=== PATIENT | male | born 1940 | race Caucasian/White ===

== ENCOUNTER 2018-08-26 14:36 | Observation (INO) | payer MEDICARE, OTHER ==
[2018-08-26 15:39] LABS: Basophils % (A) 1 %; Eosinophils # (A) 0.1 k/uL (0-0.7); Eosinophils % (A) 2 %; Lymphocytes # (A) 0.8 k/uL (1.0-4.8); Lymphocytes % (A) 13 %; MCH 29.5 pg (25.0-35.0); MCHC 32.6 g/dL (31.0-37.0); MCV 90.4 fL (80.0-100.0); Mean Platelet Volume 7.3; Monocytes # (A) 0.3 k/uL (0-1.0); Monocytes % (A) 5 %; Neutrophils # (A) 4.8 k/uL (1.3-7.7); Neutrophils % (A) 77 %; Platelet Count 211 k/uL (150-450); RBC 5.41 m/uL (4.30-5.90); RDW 13.2 % (11.5-15.5); WBC 6.2 k/uL (3.8-10.6)
[2018-08-26] MEDS ORDERED: MECLIZINE 12.5 MG TAB PO STA (15:40)
[2018-08-26] MEDS ORDERED: SODIUM CHLORIDE 0.9% 500 ML 500 ML IV ONE (15:40)
--- NOTE | 2018-08-26 15:44 | ED ---
General Adult HPI - General Chief complaint: Dizziness Stated complaint: Dizzy Time Seen by Provider: 08/26/18 15:29 Source: patient, RN notes reviewed, old records reviewed Mode of arrival: ambulatory Limitations: no limitations - History of Present Illness Initial comments: 78-year-old male presents with chief complaint of dizziness and lightheadedness. Patient's symptoms have been present throughout the day today. States he woke with these symptoms. He is presenting approximately 3 PM. Denies any focal numbness or weakness. He had one episode of vomiting. He had symptoms throughout the past 10 hours. Symptoms are worsened by position changes. No recent URI symptoms. No fever or chills. No significant headache. No focal numbness or weakness. No chest pain or dyspnea. No abdominal pain. He had several episodes of vomiting approximately 2 days ago and he has been adjusting his diet because he was recently diagnosed with diabetes. - Related Data Home Medications Medication Instructions Recorded Confirmed Aspirin 325 mg PO HS 08/26/18 08/26/18 Atorvastatin [Lipitor] 80 mg PO HS 08/26/18 08/26/18 Latanoprost [Xalatan 0.005%] 1 drop BOTH EYES HS 08/26/18 08/26/18 amLODIPine [Norvasc] 10 mg PO HS 08/26/18 08/26/18 Allergies Allergy/AdvReac Type Severity Reaction Status Date / Time No Known Allergies Allergy Verified 08/26/18 16:08 Review of Systems ROS Statement: Those systems with pertinent positive or pertinent negative responses have been documented in the HPI. ROS Other: All systems not noted in ROS Statement are negative. Past Medical History Past Medical History: Coronary Artery Disease (CAD), Hyperlipidemia, Hypertension History of Any Multi-Drug Resistant Organisms: None Reported Past Surgical History: Cholecystectomy, Heart Catheterization With Stent Additional Past Surgical History / Comment(s): GLAUCOMA Past Psychological History: No Psychological Hx Reported Smoking Status: Former smoker Past Alcohol Use History: Occasional Past Drug Use History: None Reported General Exam Limitations: no limitations General appearance: alert, in no apparent distress Head exam: Present: atraumatic, normocephalic Eye exam: Present: normal appearance, PERRL, EOMI. Absent: nystagmus ENT exam: Present: mucous membranes dry Neck exam: Present: normal inspection. Absent: tenderness, meningismus Respiratory exam: Present: normal lung sounds bilaterally. Absent: respiratory distress, wheezes Cardiovascular Exam: Present: normal rhythm, bradycardia GI/Abdominal exam: Present: soft. Absent: distended, tenderness, guarding Extremities exam: Present: normal inspection, normal capillary refill. Absent: pedal edema, calf tenderness Neurological exam: Present: alert, oriented X3, CN II-XII intact, normal gait, other (No ataxia). Absent: motor sensory deficit Psychiatric exam: Present: normal affect, normal mood Skin exam: Present: warm, dry, intact. Absent: cyanosis, diaphoretic, erythema Course Vital Signs 08/26/18 14:54 Temperature 98 F Pulse Rate 48 L Respiratory 16 Rate Blood Pressure 151/75 O2 Sat by Pulse 96 Oximetry EKG Findings - EKG Comments: EKG Findings:: EKG: Sinus bradycardia, low voltage QRS, rate of 48, MD interval 162, QRS duration 84, QTC 391. No ST segment elevation Medical Decision Making - Medical Decision Making 78-year-old male presenting for evaluation of lightheadedness, vertigo. Patient found to be bradycardic, no history of bradycardia this is sinus bradycardia with stable blood pressure. No beta blockers or calcium channel blockers. Symptoms are consistent with vertigo, somewhat improved with IV hydration and meclizine. He has normal CBC, normal CMP. He has a nonfocal neurologic exam, negative head CT, negative chest x-ray. No old records for comparison, no history of bradycardia, will be kept in observation for telemetry, echo will be obtained. Cardiology placed on consult. - Lab Data Result diagrams: 08/26/18 15:15 08/26/18 15:15 Lab Results 08/26/18 08/26/18 08/26/18 Range/Units 15:15 15:15 15:15 WBC 6.2 (3.8-10.6) k/uL RBC 5.41 (4.30-5.90) m/uL Hgb 16.0 (13.0-17.5) gm/dL Hct 49.0 (39.0-53.0) % MCV 90.4 (80.0-100.0) fL MCH 29.5 (25.0-35.0) pg MCHC 32.6 (31.0-37.0) g/dL RDW 13.2 (11.5-15.5) % Plt Count 211 (150-450) k/uL Neutrophils % 77 % Lymphocytes % 13 % Monocytes % 5 % Eosinophils % 2 % Basophils % 1 % Neutrophils # 4.8 (1.3-7.7) k/uL Lymphocytes # 0.8 L (1.0-4.8) k/uL Monocytes # 0.3 (0-1.0) k/uL Eosinophils # 0.1 (0-0.7) k/uL Basophils # 0.0 (0-0.2) k/uL Sodium 142 (137-145) mmol/L Potassium 4.5 (3.5-5.1) mmol/L Chloride 108 H (98-107) mmol/L Carbon Dioxide 23 (22-30) mmol/L Anion Gap 11 mmol/L BUN 17 (9-20) mg/dL Creatinine 0.85 (0.66-1.25) mg/dL Est GFR (CKD-EPI)AfAm >90 (>60 ml/min/1.73 sqM) Est GFR (CKD-EPI)NonAf 82 (>60 ml/min/1.73 sqM) Glucose 106 H (74-99) mg/dL Calcium 9.6 (8.4-10.2) mg/dL Total Bilirubin 2.3 H (0.2-1.3) mg/dL AST 40 (17-59) U/L ALT 41 (21-72) U/L Alkaline Phosphatase 65 (38-126) U/L Troponin I <0.012 (0.000-0.034) ng/mL Total Protein 7.3 (6.3-8.2) g/dL Albumin 4.5 (3.5-5.0) g/dL Disposition Clinical Impression: Near syncope, Bradycardia Disposition: ADMITTED IP TO THIS [facility] Condition: Stable Is patient prescribed a controlled substance at d/c from ED?: No Referrals: Nonstaff,Physician [Primary Care Provider] - 1-2 days Decision to Admit Reason: Admit from EC Decision Date: 08/26/18 Decision Time: 18:03
[2018-08-26 15:53] LABS: ALT 41 U/L (21-72); AST 40 U/L (17-59); Albumin 4.5 g/dL (3.5-5.0); Alkaline Phosphatase 65 U/L (38-126); Anion Gap 11 mmol/L; Blood Urea Nitrogen 17 mg/dL (9-20); Calcium 9.6 mg/dL (8.4-10.2); Carbon Dioxide 23 mmol/L (22-30); Chloride 108 mmol/L (98-107); Glucose 106 mg/dL (74-99); Potassium 4.5 mmol/L (3.5-5.1); Sodium 142 mmol/L (137-145); Total Bilirubin 2.3 mg/dL (0.2-1.3); Total Protein 7.3 g/dL (6.3-8.2)
--- NOTE | 2018-08-26 17:09 | CT ---
EXAMINATION TYPE: CT brain wo con DATE OF EXAM: 08/26/2018 COMPARISON: None HISTORY: Dizziness today. CT DLP: 1131.4 mGycm Automated exposure control for dose reduction was used. FINDINGS: There is cerebral cortical atrophy. There is no mass effect nor midline shift. There is no sign of in tracranial hemorrhage. The calvarium is intact. IMPRESSION: CEREBRAL ATROPHY. NO ACUTE INTRACRANIAL ABNORMALITY.
--- NOTE | 2018-08-26 17:10 | XR ---
EXAMINATION TYPE: XR chest 2V DATE OF EXAM: 08/26/2018 COMPARISON: NONE HISTORY: Dizziness TECHNIQUE: Frontal and lateral views of the chest are obtained. FINDINGS: Heart and mediastinum are normal. Lungs are clear. Diaphragm is normal. Bony thorax is int act. IMPRESSION: Normal chest
[2018-08-26] MEDS ORDERED: MECLIZINE 25 MG TAB PO PRN (17:58)
[2018-08-26] MEDS ORDERED: NALOXONE 0.4 MG/ML 1 ML VIAL IV PRN (17:58)
[2018-08-26] MEDS ORDERED: ACETAMINOPHEN TAB 325 MG TAB PO PRN (17:58)
[2018-08-26] MEDS ORDERED: ASPIRIN 325 MG TAB PO STA (17:58)
[2018-08-26] MEDS ORDERED: SODIUM CHLORIDE 0.9% 1,000 ML IV SCH (18:00)
[2018-08-26] MEDS ORDERED: LATANOPROST 0.005% OPHTH DROPS 2.5 ML BTL BOTH EYES SCH (21:00)
[2018-08-26] MEDS ORDERED: amLODIPine 10 MG TAB PO SCH (21:00)
[2018-08-26] MEDS ORDERED: ATORVASTATIN 80 MG TAB PO SCH (21:00)
[2018-08-26] MEDS ORDERED: ASPIRIN 325 MG TAB PO SCH (21:00)
[2018-08-26] MEDS ORDERED: MECLIZINE 12.5 MG TAB PO PRN (22:40)
[2018-08-26] MEDS ORDERED: ALPRAZolam 0.25 MG TAB PO PRN (22:41)
[2018-08-26] MEDS: MECLIZINE 12.5 MG TAB PO SCH (23:24)
[2018-08-27 07:32] LABS: Appearance,Urine Clear (Clear); Bilirubin,Urine Negative (Negative); Blood,Urine Negative (Negative); Color,Urine Yellow; Glucose,Urine (UA) Negative (Negative); Ketones,Urine 2+ (Negative); Leukocyte Esterase,Urine Negative (Negative); Nitrite,Urine Negative (Negative); Protein,Urine Negative (Negative); Specific Gravity,Urine 1.021 (1.001-1.035); Urobilinogen,Urine <2.0 mg/dL (<2.0)
--- NOTE | 2018-08-27 07:41 | HP ---
HISTORY AND PHYSICAL DATE OF SERVICE: 08/26/2018 CHIEF COMPLAINT: Dizziness. HISTORY OF PRESENT ILLNESS: This 78-year-old gentleman with a past medical history of multiple medical problems including CAD, hypertension, hyperlipidemia, glaucoma, cholecystectomy, CAD with stent being followed by primary physician in the outpatient setting was living in [place]. The patient was home for a . Patient was in his room and the patient had sudden onset of dizziness last night. The patient had multiple episodes. The patient felt that the room is spinning and the patient apparently had difficulty walking and the patient is unsure whether patient passed out or not. The patient has significant difficulties today. The patient also had an episode of vomiting. Because of the increasing symptoms, patient came to [facility] and admitted for further evaluation and treatment. There is no history of fever, rigors. No history of headache, loss of consciousness or seizures. No history of chest pain or palpitation. PAST MEDICAL HISTORY: CAD, stent, hypertension, hyperlipidemia, glaucoma, history of cholecystectomy. MEDICATIONS: Medications prior to admission include: 1. Norvasc 10 mg q.h.s. 2. Xalatan eyedrops 1 drop daily. 3. Lipitor 80 mg. 4. Aspirin 325 mg q.h.s. ALLERGIES: Allergies are none. FAMILY HISTORY: History of diabetes mellitus, aplastic anemia. SOCIAL HISTORY: Previous history of smoking. No history of current smoking or alcohol intake. REVIEW OF SYSTEMS: ENT: As mentioned earlier CARDIOVASCULAR SYSTEM: No angina. RESPIRATORY SYSTEM: No cough. GI: No nausea. : No dysuria. NERVOUS SYSTEM: As mentioned earlier. ALLERGY/IMMUNOLOGY: No history of asthma. MUSCULOSKELETAL: As mentioned earlier. HEMATOLOGY/ONCOLOGY: No history of anemia. ENDOCRINE: No history of diabetes or hypothyroidism. CONSTITUTIONAL: As mentioned earlier. DERMATOLOGY: Negative. RHEUMATOLOGY: Negative. PSYCHIATRY: As mentioned earlier. PHYSICAL EXAMINATION: The patient is alert and oriented x3. The pulse is 55, blood pressure 146/69, respiration 18, temperature 97.7, pulse ox 98% on room air. No orthostatic changes. HEENT: Conjunctivae normal. NECK: No jugular venous distention. CARDIOVASCULAR: S1, S2 muffled. No S3, no S4. RESPIRATORY: Breath sounds diminished at the bases. No rhonchi, no crackles. ABDOMEN: Soft, nontender. No mass palpable. LEGS: No edema. No swelling. NERVOUS SYSTEM: Higher functions as mentioned earlier. No nystagmus. Moves all 4 limbs. No sensory dysfunction. No focal weakness. SKIN: No ulcer, rash or bleeding. JOINTS: No active deforming arthropathy. LABS: CBC within normal. Sodium 142, potassium 4.5. Total bilirubin is 2.3. ASSESSMENT: 1. Dizziness for evaluation, possible benign positional vertigo, rule out transient ischemic attack. 2. 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 3. History of coronary artery disease, stent. 4. Hypertension,. 5. Hyperlipidemia. 6. Glaucoma. 7. History of cholecystectomy. 8. Remote history of nicotine dependence. RECOMMENDATIONS AND DISCUSSION: This 78-year-old gentleman presented with multiple complex medical issues. At this time, I recommend to continue current medications, continue symptomatic treatment and antiplatelet agents. Recommend cardiology and neurology consultations. Other than that, symptomatic treatment also will be provided with Antivert. The patient did have a brain CAT scan showed cerebral atrophy. I would also recommend a 2D echo and carotid Doppler also. The prognosis guarded because of multiple complex medical issues. Further recommendations to follow. Discussed with the patient . MMODL / IJN: [id number] / LIZZY
--- NOTE | 2018-08-27 07:55 | US ---
EXAMINATION TYPE: US carotid duplex BILAT DATE OF EXAM: 08/27/2018 COMPARISON: NONE CLINICAL HISTORY: syncope/stroke?. 2 episodes of dizziness, no h/o stroke EXAM MEASUREMENTS: RIGHT: Peak Systolic Velocity (PSV) cm/sec ----- Right CCA: 78.8 ----- Right ICA: 77.9 ----- Right ECA: 91.6 ICA/CCA ratio: 1.0 RIGHT: End Diastole cm/sec ----- Right CCA: 12.5 ----- Right ICA: 11.6 ----- Right ECA: 4.7 LEFT: Peak Systolic Velocity (PSV) cm/sec ----- Left CCA: 64.8 ----- Left ICA: 96.0 ----- Left ECA: 99.3 ICA/CCA ratio: 1.5 LEFT: End Diastole cm/sec ----- Left CCA: 9.9 ----- Left ICA: 23.4 ----- Left ECA: 0.0 VERTEBRALS (direction of flow): Right Vertebral: Antegrade Left Vertebral: Antegrade Rhythm: Normal Heterogeneous plaque seen bilaterally with no significant stenosis seen. IMPRESSION: Mild degree of grayscale atheromatous plaquing with no sonographically evident hemodynam ically significant stenosis within either visualized carotid arterial system. Criteria for Assigning % of Stenosis / Diameter reduction (Estimation based on the indirect measurements of the internal carotid artery velocities (ICA PSV). 1. Normal (no stenosis)=ICA PSV < 125 cm/s: ratio < 2.0: ICA EDV<40 cm/s. 2. Less than 50% stenosis=ICA PSV < 125 cm/s: ratio < 2.0: ICA EDV<40 cm/s. 3. 50 to 69% stenosis=ICA PSV of 125 to 230 cm/s: ration 2.0 ? 4.0: ICA EDV 40-100 cm/s. 4. Greater than 70% stenosis to near occlusion= ICA PSV > 230 cm/s: ratio > 4.0: ICA EDV > 100 cm/s. 5. Near occlusion= ICA PSV velocities may be low or undetectable: variable ratio and ICA EDV. 6. Total occlusion=unable to detect flow.
[2018-08-27] MEDS: MECLIZINE 12.5 MG TAB PO SCH (08:26)
[2018-08-27 08:35] LABS: Anion Gap 6 mmol/L; Blood Urea Nitrogen 16 mg/dL (9-20); Calcium 8.9 mg/dL (8.4-10.2); Carbon Dioxide 25 mmol/L (22-30); Chloride 111 mmol/L (98-107); Glucose 90 mg/dL (74-99); Magnesium 1.9 mg/dL (1.6-2.3); Potassium 3.9 mmol/L (3.5-5.1); Sodium 142 mmol/L (137-145)
[2018-08-27 08:42] LABS: Basophils # (A) 0.1 k/uL (0-0.2); Basophils % (A) 1 %; Eosinophils # (A) 0.1 k/uL (0-0.7); Eosinophils % (A) 2 %; HGB 14.1 gm/dL (13.0-17.5); Lymphocytes # (A) 1.4 k/uL (1.0-4.8); Lymphocytes % (A) 30 %; MCH 29.6 pg (25.0-35.0); MCHC 32.9 g/dL (31.0-37.0); MCV 90.1 fL (80.0-100.0); Mean Platelet Volume 7.3; Monocytes # (A) 0.3 k/uL (0-1.0); Monocytes % (A) 7 %; Neutrophils # (A) 2.7 k/uL (1.3-7.7); Neutrophils % (A) 57 %; Platelet Count 186 k/uL (150-450); RBC 4.77 m/uL (4.30-5.90); RDW 14.1 % (11.5-15.5); WBC 4.7 k/uL (3.8-10.6)
[2018-08-27] MEDS ORDERED: HEPARIN SODIUM,PORCINE 5,000 UNIT/ML 1 ML VIAL SQ SCH (09:00)
[2018-08-27] MEDS ORDERED: LATANOPROST 0.005% OPHTH DROPS 2.5 ML BTL BOTH EYES SCH (09:00)
--- NOTE | 2018-08-27 09:33 | P.CRDCN ---
History of Present Illness History of present illness: This is a pleasant 78-year-old male past medical history significant for coronary artery disease s/p stent plavement 25 years ago, hypertension, dyslipidemia. He lives in [place] but he is here for a . He follows closely with a field enumerator in [place], Dr. Erickson. We have been asked to see him in consultation secondary to a near syncopal episode with bradycardia. He states he woke up Friday night and the room was spinning. He was extremely nauseated associated with this dizziness. He denies associated shortness of breath, chest pain, palpitations, vomiting or diaphoresis. He sat up in bed and was going to try and stand up but was unable to due to severe dizziness. He laid back down and closed his eyes, his symptoms seemed to improve. Then whenever he would turn his head the dizziness would return. The symptoms were off and on all day until about 2 pm when he decided to come to the hospital. By the time he got here his symptoms had completely resolved and have not returned. He is seen and examined resting comfortably in bed in no acute distress. He was given an antivert last night, but he said he was asymptomatic at the time so unsure of its effect. EKG reveals sinus bradycardia heart rate of 48. Telemetry tracings revealed persistent sinus bradycardia. More pronounced at night while sleeping. Asymptomatic. Chest x-ray is negative for an acute cardiopulmonary process. Laboratory data reviewed, WBC 4.7, hemoglobin 14.1, platelets 186, d-dimer 0.42, sodium 142, potassium 3.9, creatinine 0.82, magnesium 1.9, cardiac enzymes negative 1 and TSH 0.676. At the time of my exam: CONSTITUTIONAL: Denies fever. Denies chills. EYES: Denies blurred vision. Denies vision changes. Denies eye pain. EARS, NOSE, MOUTH & THROAT: Denies headache. Denies sore throat. Denies ear pain. CARDIOVASCULAR: Denies chest pain. Denies shortness of breath. Denies orthopnea. Denies PND. Denies palpitations. RESPIRATORY: Denies cough. GASTROINTESTINAL: Denies abdominal pain. Denies diarrhea. Denies constipation. Denies nausea. Denies vomiting. MUSCULOSKELETAL: Denies myalgias. INTEGUMENTARY: Denies pruitis. Denies rash. NEUROLOGIC: Denies numbness. Denies tingling. Denies weakness. PSYCHIATRIC: Denies anxiety. Denies depression. ENDOCRINE: Denies fatigue. Denies weight change. Denies polydipsia. Denies polyurina. GENITOURINARY: Denies burning, hematuria or urgency with micturation. HEMATOLOGIC: Denies history of anemia. Denies bleeding. Blood pressure 119/62 heart rate 58 afebrile maintaining oxygen saturation on room air GENERAL: This is a 78-year-old male in no apparent distress at the time of my examination. HEENT: Head is atraumatic, normocephalic. Pupils are equal, round. Sclerae anicteric. Conjunctivae are clear. Mucous membranes of the mouth are moist. Neck is supple. There is no jugular venous distention. No carotid bruit is heard. LUNGS: Clear to auscultation no wheezes, rales or rhonchi. No chest wall tenderness is noted on palpation or with deep breathing. HEART: Regular rate and rhythm with systolic ejection murmur at the base, no rubs or gallops. S1 and S2 heard. ABDOMEN: Soft, nontender. Bowel sounds are heard. No organomegaly noted. EXTREMITIES: No evidence of peripheral edema and no calf tenderness noted. VASCULAR: Radial and dorsalis pedis pulses palpated, no evidence of clubbing. NEUROLOGIC: Patient is awake, alert and oriented x3. ASSESSMENT Dizziness, suggestive of vertigo Sinus bradycardia, asymptomatic History of coronary artery disease status post stent placement 25 years ago. Exact details unavailable. Hypertension Dyslipidemia PLAN Obtain records from his primary field enumerator, he states he had an echocardiogram approximately one month ago. Sinus bradycardia occurs mostly at night and is asymptomatic. Not associated with his symptoms. Thank you kindly for this consultation. Nurse Practitioner note has been reviewed, I agree with a documented findings and plan of care. Patient was seen and examined. Past Medical History Past Medical History: Coronary Artery Disease (CAD), Hyperlipidemia, Hypertension Additional Past Medical History / Comment(s): glaucoma History of Any Multi-Drug Resistant Organisms: None Reported Past Surgical History: Cholecystectomy, Heart Catheterization With Stent Additional Past Surgical History / Comment(s): 2 stents 1 in 1994 and another in 1995, 2013 "stent from aorta to the liver" Past Anesthesia/Blood Transfusion Reactions: No Reported Reaction Date of Last Stent Placement:: 1995 Past Psychological History: No Psychological Hx Reported Smoking Status: Former smoker Past Alcohol Use History: Occasional Past Drug Use History: None Reported - Past Family History Father Additional Family Medical History / Comment(s): aplastic anemia Mother Family Medical History: Diabetes Mellitus Sister(s) Additional Family Medical History / Comment(s): gallbladder issues Brother(s) Family Medical History: No Reported History Son(s) Family Medical History: No Reported History Daughter(s) Additional Family Medical History / Comment(s): heart valve repair Medications and Allergies Home Medications Medication Instructions Recorded Confirmed Type Aspirin 325 mg PO HS 08/26/18 08/26/18 History Atorvastatin [Lipitor] 80 mg PO HS 08/26/18 08/26/18 History Latanoprost [Xalatan 0.005%] 1 drop BOTH EYES DAILY 08/26/18 08/26/18 History amLODIPine [Norvasc] 10 mg PO HS 08/26/18 08/26/18 History Allergies Allergy/AdvReac Type Severity Reaction Status Date / Time No Known Allergies Allergy Verified 08/26/18 16:08 Physical Exam Vitals: Vital Signs Temp Pulse Pulse Pulse Pulse Pulse Resp 08/27/18 08:00 50 L 18 08/27/18 07:00 98.1 F 50 L 18 08/27/18 04:00 18 08/27/18 03:36 97.8 F 49 L 18 08/27/18 00:00 97.7 F 45 L 18 08/26/18 21:27 55 L 57 L 48 L 18 08/26/18 20:00 18 08/26/18 19:50 97.7 F 65 18 08/26/18 18:24 98.0 F 49 L 18 08/26/18 14:54 98 F 48 L 16 BP BP BP BP BP BP Pulse Ox 08/27/18 08:00 08/27/18 07:00 119/62 94 L 08/27/18 04:00 08/27/18 03:36 117/62 95 08/27/18 00:00 116/60 96 08/26/18 21:27 146/69 130/71 134/67 98 08/26/18 20:00 08/26/18 19:50 158/74 97 08/26/18 18:24 157/89 98 08/26/18 14:54 151/75 96 Intake and Output 08/26/18 08/27/18 08/27/18 22:59 06:59 14:59 Other: Voiding Method Toilet Toilet Toilet # Voids 1 Results 08/27/18 08:04 08/27/18 08:04 Cardiac Enzymes 08/26/18 08/26/18 Range/Units 15:15 15:15 AST 40 (17-59) U/L Troponin I <0.012 (0.000-0.034) ng/mL CBC 08/26/18 08/27/18 Range/Units 15:15 08:04 WBC 6.2 4.7 (3.8-10.6) k/uL RBC 5.41 4.77 (4.30-5.90) m/uL Hgb 16.0 14.1 (13.0-17.5) gm/dL Hct 49.0 43.0 (39.0-53.0) % Plt Count 211 186 (150-450) k/uL Comprehensive Metabolic Panel 08/26/18 08/27/18 Range/Units 15:15 08:04 Sodium 142 142 (137-145) mmol/L Potassium 4.5 3.9 (3.5-5.1) mmol/L Chloride 108 H 111 H (98-107) mmol/L Carbon Dioxide 23 25 (22-30) mmol/L BUN 17 16 (9-20) mg/dL Creatinine 0.85 0.82 (0.66-1.25) mg/dL Glucose 106 H 90 (74-99) mg/dL Calcium 9.6 8.9 (8.4-10.2) mg/dL AST 40 (17-59) U/L ALT 41 (21-72) U/L Alkaline Phosphatase 65 (38-126) U/L Total Protein 7.3 (6.3-8.2) g/dL Albumin 4.5 (3.5-5.0) g/dL Current Medications Generic Name Dose Route Start Last Admin Trade Name Freq PRN Reason Stop Dose Admin Acetaminophen 650 mg 08/26/18 17:58 Tylenol Tab PO Q6HR PRN Mild Pain or Fever > 100.5 Alprazolam 0.25 mg 08/26/18 22:41 Xanax PO TID PRN Anxiety Amlodipine Besylate 10 mg 08/26/18 21:00 08/26/18 20:51 Norvasc PO 10 mg HS ALEJANDRA Administration Aspirin 325 mg 08/26/18 21:00 08/26/18 20:51 Aspirin PO Not Given HS ALEJANDRA Atorvastatin Calcium 80 mg 08/26/18 21:00 08/26/18 20:51 Lipitor PO 80 mg HS ALEJANDRA Administration Heparin Sodium (Porcine) 5,000 unit 08/27/18 09:00 08/27/18 08:25 Heparin SQ 5,000 unit Q12HR ALEJANDRA Administration Sodium Chloride 1,000 mls @ 75 mls/hr 08/26/18 18:00 08/26/18 18:30 Saline 0.9% IV 75 mls/hr .[id number] ALEJANDRA Administration Latanoprost 1 drops 08/27/18 09:00 08/27/18 08:26 Xalatan 0.005% BOTH EYES 1 drops DAILY ALEJANDRA Administration Meclizine HCl 12.5 mg 08/26/18 22:45 08/27/18 08:26 Antivert PO 12.5 mg TID ALEJANDRA Administration Meclizine HCl 12.5 mg 08/26/18 22:40 Antivert PO QID PRN Vertigo Naloxone HCl 0.2 mg 08/26/18 17:58 Narcan IV Q2M PRN Opioid Reversal Intake and Output 08/26/18 08/27/18 08/27/18 22:59 06:59 14:59 Other: Voiding Method Toilet Toilet Toilet # Voids 1 08/27/18 08:04 08/27/18 08:04
--- NOTE | 2018-08-27 11:15 | ECHOF ---
Referral Reason:SYNCOPE MEASUREMENTS -------- HEIGHT: 172.7 cm WEIGHT: 70.8 kg BP: IVSd: 1.3 cm (0.6 - 1.1) LVIDd: 4.0 cm (3.9 - 5.3) LVPWd: 1.4 cm (0.6 - 1.1) IVSs: 1.7 cm LVIDs: 1.9 cm LVPWs: 1.8 cm LAESV Index (A-L): 21.44 ml/m Ao Diam: 2.5 cm (2.0 - 3.7) AV Cusp: 1.7 cm (1.5 - 2.6) LA Diam: 3.8 cm (2.7 - 3.8) MV EXCURSION: 13.883 mm (> 18.000) MV EF SLOPE: 62 mm/s (70 - 150) EPSS: 0.2 cm MV E Gabino: 1.06 m/s MV DecT: 203 ms MV A Gabino: 0.62 m/s MV E/A Ratio: 1.73 AV maxP.40 mmHg AV meanP.05 mmHg AR PHT: 1004 ms RAP: 5.00 mmHg RVSP: 31.46 mmHg FINDINGS -------- Sinus rhythm. This was a technically good study. The left ventricular size is normal. There is mild concentric left ventricular hypertrophy. Overa ll left ventricular systolic function is normal with, an EF between 55 - 60 %. The right ventricle is normal in size. The left atrial size is normal. Left atrium is normal size by volume. The right atrial size is normal. Interatrial and interventricular septum intact. Aortic valve is trileaflet and is mildly thickened. There is mild aortic valve sclerosis without st enosis. Trace to mild aortic regurgitation. Mild mitral annular calcification present. Mild mitral regurgitation is present. Mild tricuspid regurgitation present. There is no evidence of pulmonary hypertension. The right v entricular systolic pressure, as measured by Doppler, is 31.46mmHg. The aortic root size is normal. The inferior vena cava is mildly dilated. There is no pericardial effusion. CONCLUSIONS -------- 1. Sinus rhythm. 2. This was a technically good study. 3. The left ventricular size is normal. 4. There is mild concentric left ventricular hypertrophy. 5. Overall left ventricular systolic function is normal with, an EF between 55 - 60 %. 6. The right ventricle is normal in size. 7. The left atrial size is normal. 8. Left atrium is normal size by volume. 9. The right atrial size is normal. 10. Interatrial and interventricular septum intact. 11. Aortic valve is trileaflet and is mildly thickened. 12. There is mild aortic valve sclerosis without stenosis. 13. Trace to mild aortic regurgitation. 14. Mild mitral annular calcification present. 15. Mild mitral regurgitation is present. 16. Mild tricuspid regurgitation present. 17. There is no evidence of pulmonary hypertension. 18. The right ventricular systolic pressure, as measured by Doppler, is 31.46mmHg. 19. The aortic root size is normal. 20. The inferior vena cava is mildly dilated. 21. There is no pericardial effusion. TOLL LINEMAN: Edith Fuentes RDCS
--- NOTE | 2018-08-27 13:08 | DS ---
DISCHARGE SUMMARY FINAL DIAGNOSES: 1. Dizziness, possible benign pressure, vertigo, rule out transient ischemic accident. 2. 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 3. History of coronary artery disease stent. 4. Hypertension. 5. Hyperlipidemia. 6. History of glaucoma. 7. History of cholecystectomy. 8. Remote history of nicotine dependence. DISCHARGE DISPOSITION: The patient will be discharged in a stable appearance with guarded prognosis after clearance from Cardiology and Neurology. HISTORY OF PRESENT ILLNESS: This is an 78-year-old gentleman with a past medical history of multiple medical problems was admitted with dizziness. BP was considered, treated with Antivert, improved significantly. The basic workup including CT scan of the brain and carotid Doppler did not show acute abnormality. Cardiology saw the patient. Neurology saw the patient. On exam, vitals are stable. CARDIOVASCULAR SYSTEM: S1, S2. ABDOMEN: Soft. NERVOUS SYSTEM: No focal deficits. Ejection fraction found to be 55% to 60%. The patient will be discharged in stable condition with guarded prognosis. Diet is cardiac diet. Activity limited until followup. Follow up with primary physician in [place]. Follow up with Cardiology and Neurology as advised. MEDICATIONS: 1. Antivert 12.5 mg t.i.d. p.r.n. 2. Aspirin 320 mg q.h.s. 3. Lipitor 80 mg q.h.s. 4. Norvasc 10 mg q.h.s. 5. Xalatan 1 drop twice daily. MMGAYEL / PATSYN: [id number] /
[2018-08-27 15:30] VITALS: BP 142/70; PULSE 53; RESP 16; TEMP 98
--- NOTE | 2018-08-27 16:22 | P.CNNES ---
History of Present Illness Consult date: 08/27/18 Reason for Consult: Syncope History of Present Illness: Patient is an 78-year-old male, who resides in [place] came to [place] on Friday, 2 days ago to attend a . The same night at 4 AM Friday, he woke up to go to the bathroom. As soon as he started to move, he felt dizzy. He laid down and the symptoms went away. For next several hours, whenever he would move, or a make any motion, he would start having dizziness or spinning. The symptoms would last for a few minutes and goes away. It will never happen when he is just laying still. At 10-11 AM yesterday he was able to get up and go to the bathroom, where but felt unsteady and shaky. However whenever he would move certain times, the spinning would come, therefore at around 2 PM he came to the ER. Patient underwent computed tomography scan of the head, which revealed cerebral atrophy, but no acute intracranial abnormality. On my review, visualized paranasal sinuses and external auditory canal appears normal. EKG showed sinus bradycardia with heart rate of 48. Chest x-ray showed no abnormalities. Carotid Doppler showed antegrade vertebral arteries. Mild d egree of grayscale atheromatous plaquing with no sonographically evident hemodynamically significant stenosis. Patient had a 2-D echo which showed normal sinus rhythm. Mild concentric LVH. EF 55-60%. Left atrial size is normal. Interatrial and interventricular septum intact. Mild aortic valve sclerosis without stenosis. Patient has been seen by cardiology, who has cleared the patient. Patient's blood test shows normal CBC, d-dimer, Chem-7, liver panel and TSH. UA negative for infection. Patient was given meclizine, and the symptoms have completely gone away. At present patient feels fine. Patient denies any focal symptoms like slurred speech, facial droop, numbness tingling focal weakness, headache. Patient states about a couple months ago he had a similar episode when he was getting out of the car, felt dizzy, lasted for a minute or 2 and then went away. He denies any tinnitus. Patient does take aspirin 325 mg daily as he has cardiac stents and also takes statin. He has borderline blood glucose. Review of Systems All systems: negative (Dizziness. Denies any chest pain shortness of breath or any other focal neurological symptoms.) Past Medical History Past Medical History: Coronary Artery Disease (CAD), Hyperlipidemia, Hypertension Additional Past Medical History / Comment(s): glaucoma History of Any Multi-Drug Resistant Organisms: None Reported Past Surgical History: Cholecystectomy, Heart Catheterization With Stent Additional Past Surgical History / Comment(s): 2 stents 1 in 1994 and another in 1995, 2013 "stent from aorta to the liver" Past Anesthesia/Blood Transfusion Reactions: No Reported Reaction Date of Last Stent Placement:: 1995 Past Psychological History: No Psychological Hx Reported Smoking Status: Former smoker Past Alcohol Use History: Occasional Past Drug Use History: None Reported - Past Family History Father Additional Family Medical History / Comment(s): aplastic anemia Mother Family Medical History: Diabetes Mellitus Sister(s) Additional Family Medical History / Comment(s): gallbladder issues Brother(s) Family Medical History: No Reported History Son(s) Family Medical History: No Reported History Daughter(s) Additional Family Medical History / Comment(s): heart valve repair Medications and Allergies Home Medications Medication Instructions Recorded Confirmed Type Aspirin 325 mg PO HS 08/26/18 08/26/18 History Atorvastatin [Lipitor] 80 mg PO HS 08/26/18 08/26/18 History Latanoprost [Xalatan 0.005%] 1 drop BOTH EYES DAILY 08/26/18 08/26/18 History amLODIPine [Norvasc] 10 mg PO HS 08/26/18 08/26/18 History Meclizine [Antivert] 12.5 mg PO TID PRN #30 tab 08/27/18 Rx Allergies Allergy/AdvReac Type Severity Reaction Status Date / Time No Known Allergies Allergy Verified 08/26/18 16:08 Physical Examination - Vital Signs Vital Signs: Vital Signs Temp Pulse Pulse Pulse Pulse Pulse Resp 08/27/18 15:30 98.0 F 53 L 16 08/27/18 12:00 50 L 18 08/27/18 11:33 97.4 F L 50 L 18 08/27/18 08:00 50 L 18 08/27/18 07:00 98.1 F 50 L 18 08/27/18 04:00 18 08/27/18 03:36 97.8 F 49 L 18 08/27/18 00:00 97.7 F 45 L 18 08/26/18 21:27 55 L 57 L 48 L 18 08/26/18 20:00 18 08/26/18 19:50 97.7 F 65 18 08/26/18 18:24 98.0 F 49 L 18 BP BP BP BP BP BP Pulse Ox 08/27/18 15:30 142/70 96 08/27/18 12:00 08/27/18 11:33 126/68 96 08/27/18 08:00 08/27/18 07:00 119/62 94 L 08/27/18 04:00 08/27/18 03:36 117/62 95 08/27/18 00:00 116/60 96 08/26/18 21:27 146/69 130/71 134/67 98 08/26/18 20:00 08/26/18 19:50 158/74 97 08/26/18 18:24 157/89 98 Intake and Output 08/27/18 08/27/18 08/27/18 06:59 14:59 22:59 Intake Total 380 Balance 380 Intake: Oral 180 Other 200 Other: Voiding Method Toilet Toilet # Voids 1 On examination patient is an elderly male, in no distress. He is alert and awake fully oriented to time place and person. Speech and language functions are normal. On cranial nerve examination pupils are round and reacting to light. Visual winston are full on confrontation. Extraocular muscl es are intact with no nystagmus. Face is symmetric and tongue protrudes to the midline. On muscle strength testing there is no pronator drift and the strength is normal in arms and legs distally and proximally. Reflexes are diminished and plantars downgoing sensory touch is equal. No ataxia for [id number] or [id number] testing. Tone and bulk of muscles normal. Gait appears steady. Patient did roll over in the bed to the left and then to the right and did not feel dizzy. Results - Laboratory Findings CBC and BMP: 08/27/18 08:04 08/27/18 08:04 Abnormal Lab Findings: Abnormal Labs 08/26/18 08/26/18 08/27/18 15:15 15:15 07:13 Lymphocytes # 0.8 L Chloride 108 H Glucose 106 H Total Bilirubin 2.3 H Urine Ketones 2+ H 08/27/18 08:04 Lymphocytes # Chloride 111 H Glucose Total Bilirubin Urine Ketones Assessment and Plan Assessment: * Probable benign positional peripheral vertigo. Symptoms now seems to have resolved. Central process unlikely with lack of other lateralizing symptoms a nd normal examination. Plan: * Antivert as needed. * No other neurological workup indicated. * Patient was recommended to see an ENT specialist if symptoms recur. * Patient was also recommended to go to ER if any other neurological symptoms appear. * Clear for discharge from neurology point.
== END 2018-08-27 16:30 | disposition home or self-care (01) ==
LOC: EC 14:36 → 1SOBS 17:58
PROVIDERS: ADMIT Internal Medicine; ATTEND Internal Medicine
DX: R42 Dizziness and giddiness (principal); R55 Syncope and collapse; E78.5 Hyperlipidemia, unspecified; E11.39 Type 2 diabetes mellitus with other diabetic ophthalmic complication; H42 Glaucoma in diseases classified elsewhere; I10 Essential (primary) hypertension; R00.1 Bradycardia, unspecified; E80.7 Disorder of bilirubin metabolism, unspecified; I25.10 Atherosclerotic heart disease of native coronary artery without angina pectoris; I35.8 Other nonrheumatic aortic valve disorders; Z79.82 Long term (current) use of aspirin; Z79.899 Other long term (current) drug therapy; Z87.891 Personal history of nicotine dependence; Z90.49 Acquired absence of other specified parts of digestive tract; Z95.5 Presence of coronary angioplasty implant and graft; Z83.3 Family history of diabetes mellitus
CPT/HCPCS: 96372; 96360; 96361; 99285; 36415; 93005; 93306; 85379; 80053; 80048; 84443; 83735; 84484; 85025 ×2; 81003; 71046; 93880; 70450; G0378 ×2; J1644